=== PATIENT | female | born 1975 | race Two or more races ===

== ENCOUNTER 2025-11-27 17:17 | Emergency (ER) | payer MEDICAID, OTHER ==
[~2025-11-27] VITALS: Ht 165.1 cm; Wt 77.2 kg
[2025-11-27 18:02] LABS: Hematocrit 35.2 % (36.0-46.0); Hemoglobin 12.0 g/dL (12.2-16.2); Mean Corpuscular Hemoglobin 30.1 pg (28.0-32.0); Mean Corpuscular Volume 88.2 fL (80.0-100.0); Nucleated Red Blood Cells % 0.1 %
[2025-11-27 18:12] LABS: Chloride 106 mmol/L (98-107); Potassium 4.1 mmol/L (3.5-5.1); Sodium 140 mmol/L (136-145)
[2025-11-27 18:13] LABS: Anion Gap 10 (5-15); Calcium 9.4 mg/dL (8.7-10.4); Carbon Dioxide 24 mmol/L (20-31)
[2025-11-27 18:18] LABS: BUN/Creatinine Ratio 14.5 (10.0-20.0); Blood Urea Nitrogen 10 mg/dL (9-23); Glucose 91 mg/dL (74-106)
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
--- NOTE | 2025-11-27 18:23 | DVH ---
CHEST RADIOGRAPH INDICATION: CP TECHNIQUE: Single frontal view of the chest was obtained COMPARISON: None FINDINGS: Lines and Tubes: None Lungs: No focal consolidation. Pleura: No effusion. No pneumothorax. Cardiomediastinal contours: Unremarkable Bones: No acute osseous abnormality. IMPRESSION: 1. No acute cardiopulmonary disease.
--- NOTE | 2025-11-27 19:40 | DVH ---
EXAM: CT HEAD WITHOUT CONTRAST INDICATION: [facility] TECHNIQUE:: CT images of the head were obtained without administration of IV contrast. CT scans at this facility use dose modulation, iterative reconstruction, and/or weight based dosing when appropriate to reduce radiation dose to as low as reasonably achievable. COMPARISON: None FINDINGS: PARENCHYMA: No acute hemorrhage. There is no mass effect, midline shift, or herniation. There is preservation of the pacheco white differentiation. VENTRICLES: No hydrocephalus. EXTRA-AXIAL SPACES: No extra-axial fluid collections. OTHER: The bony structures are intact. Mucous retention cysts in the left inferior maxillary sinus. IMPRESSION: 1. No CT evidence of an acute intracranial abnormality.
[2025-11-27 20:41] VITALS: BP 120/81; PULSE 67; RESP 16; TEMP 98.2; O2SAT 98
[2025-11-27] MEDS: HYDROcodone-ACET 5/325MG TAB PO ONE (20:53)
--- NOTE | 2025-12-01 19:26 | ECG ---
[facility] Test Date: 2025-11-27 Test Time: 17:41:39 Pat Name: EDGARDO ALLEN Department: Room: Gender: F Valance Cutter: LILLIANA : 1975 Requested By: JOHN IRIZARRY Order Number: [id number] Reading MD: Measurements Intervals [place] Rate: 70 P: 35 WV: 151 QRS: -41 QRSD: 98 T: 8 QT: 422 QTc: 456 Interpretive Statements Sinus rhythm Left anterior fascicular block Low voltage, precordial leads RSR' in V1 or V2, right VCD or RVH Consider anterior infarct Please click the below link to view image of tracing.
--- NOTE | 2025-12-01 19:26 | ECG ---
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
== END 2025-11-27 21:06 | disposition home or self-care (01) ==
LOC: ER 17:17 → EDBD 17:17 → ER 21:06
DX: S29.011A Strain of muscle and tendon of front wall of thorax, initial encounter (principal); Z88.0 Allergy status to penicillin; V43.52XA Car driver injured in collision with other type car in traffic accident, initial encounter; Y93.I9 Activity, other involving external motion; Y92.488 Other paved roadways as the place of occurrence of the external cause; Y99.8 Other external cause status
CPT/HCPCS: 36415; 70450; 71045; 80048; 84484; 85025; 93005